=== PATIENT | female | born 1980 | race Caucasian/White ===

== ENCOUNTER 2024-07-10 17:18 | Inpatient (IN) | payer MEDICAID, SELFPAY ==
[2024-07-10] VITALS (13 sets, daily range): BP systolic 127–156; BP diastolic 61–84; PULSE 96–110; RESP 14–23; TEMP 36.6–37.1; O2SAT 96–100; BMI 41.8; BMI 40.6
--- NOTE | 2024-07-10 17:46 | PD.EDRME ---
Rapid Medical Screening Exam RME Arrival date/time: 07/10/24 17:18 43-year-old female with no known medical history presents to the emergency room with a chief complaint of a low hemoglobin level. Patient states she was called by her primary care provider to come to the emergency room for a hemoglobin level of 3. I have greeted and performed a focused initial assessment of this patient. A comprehensive ED assessment and evaluation of the patient, analysis of all test results, and completion of the medical decision making process will be conducted by additional ED providers. Chief Complaint: Shortness of Breath/Dyspnea Vital signs reviewed by provider: Yes
[2024-07-10 18:24] LABS: Basophils # (Auto) 0.1 Thou/mm3 (0.0-0.2); Basophils % (Auto) 0 % (0-2.5); Eosinophils # (Auto) 0.4 Thou/mm3 (0.0-0.5); Eosinophils % (Auto) 3 % (0-10); Immature Granulocytes % (Auto) 1 % (0-0); Immature Granulocytes Auto 0.12 Thou/mm3 (0.00-0.00); Lymphocytes # (Auto) 1.2 Thou/mm3 (1.0-4.8); Lymphocytes % (Auto) 9 % (10-50); Mean Corpuscular HGB Conc 24.1 g/dl (31.0-37.0); Mean Corpuscular Hemoglobin 14.9 pg (25.0-35.0); Mean Corpuscular Volume 62 fL (80-100); Monocytes # (Auto) 0.9 Thou/mm3 (0.0-0.8); Monocytes % (Auto) 7 % (0-12); Neutrophils # (Auto) 10.7 Thou/mm3 (1.8-7.7); Neutrophils % (Auto) 80 % (37-80); Nucleated Red Blood Cell # 0.08 Thou/mm3 (0.00-0.00); Nucleated Red Blood Cell % 1 /100 WBC (0); Platelet Count 409 Thou/mm3 (140-440); RDW Standard Deviation 48.3 fL (36.4-46.3); Red Blood Count 2.69 Miln/mm3 (4.00-5.20); White Blood Count 13.3 Thou/mm3 (3.6-11.0)
[2024-07-10 18:30] LABS: Partial Thromboplastin Time 25.7 Seconds (22.0-36.0); Prothrombin Time 11.3 Seconds (9.0-12.2)
[2024-07-10 18:46] LABS: Alanine Aminotransferase 8 U/L (10-49); Albumin/Globulin Ratio 1.3 (1.2-2.2); Alkaline Phosphatase 104 U/L (46-116); Anion Gap 8 (7-16); Aspartate Amino Transferase 12 U/L (0-34); BUN/Creatinine Ratio 10 Ratio (12-20); Bilirubin,Total 0.4 mg/dL (0.3-1.2); Blood Urea Nitrogen 7 mg/dL (9-23); Calcium 8.9 mg/dL (8.3-10.6); Calcium (Corrected) 8.9 mg/dL (8.5-10.1); Carbon Dioxide 23.7 mMol/L (20.0-31.0); Chloride 108 mMol/L (98-107); Creatinine (Component) 0.7 mg/dL (0.6-1.3); Estimated Creatinine Clearance 143.7 mL/min (>60); Globulin 3.2 gm/dL (2.3-3.5); Glucose 90 mg/dL (74-106); Osmolality,Calculated 277 (275-295); Potassium 3.6 mMol/L (3.4-5.1); Sodium 140 mMol/L (136-145); Total Protein 7.2 gm/dL (5.7-8.2); eGFR > 60 See Note
--- NOTE | 2024-07-10 18:48 | PC.NURSE ---
[facility] FROM LAB CALLED W/ CRITICAL LAB HGB 4.0, HCT 16.6. PUT IN COMMENTS FOR PROVIDER.
[2024-07-10 18:49] LABS: Hematocrit 16.6 % (36.0-46.0)
[2024-07-10 18:57] LABS: Path Review Blood Smear Sent to Pathologist
--- NOTE | 2024-07-10 19:28 | EDNOTE_ITS ---
ED SOB =RME/HPI General Chief Complaint: Shortness of Breath/Dyspnea Stated Complaint: SOB, COUGH, BACK PAIN X 3 DAYS, LOW HGB PER PCP Time Seen by Provider: 07/10/24 19:24 Arrival date/time: 07/10/24 17:18 RME / HPI RME / HPI Narrative: 07/10/24 17:18 43-year-old female with no known medical history presents to the emergency room with a chief complaint of a low hemoglobin level. Patient states she was called by her primary care provider to come to the emergency room for a hemoglobin level of 3. I have greeted and performed a focused initial assessment of this patient. A comprehensive ED assessment and evaluation of the patient, analysis of all test results, and completion of the medical decision making process will be conducted by additional ED providers. -------- Dr. Howe?s Main ED Evaluation: 43yo female presents to the ED for a chief complaint of low hemoglobin. Patient states she went to see her PCP earlier today due to being congested and having low back pain, reporting when they checked her hemoglobin, it was low at 3, so she was sent over here for evaluation. Patient states she gets nose bleeds often (almost daily) and has shortness of breath on exertion. Patient denies having any abnormal vaginal bleeding (no longer has periods), dark stools, weakness, dizziness, abnormal bruising or any other associated symptoms. No known allergies. Related Data Allergies Allergy/AdvReac Type Severity Reaction Status Date / Time No Known Allergies Allergy Verified 07/10/24 17:22 Review of Systems Review of Systems Systems Reviewed: All systems reviewed, normal except as documented Past Medical History Past Medical History CARDIAC: Negative Cardiac Disorders or Congestive Heart Failure RESPIRATORY: Negative Chronic Obstructive Pulmonary Disease (COPD) or Asthma GENITOURINARY: Negative Renal Disease ENDOCRINE: Negative Diabetes Mellitus Type 1 or Diabetes Mellitus Type 2 HEMATOLOGIC: Negative Sickle Cell Disease Social History SMOKING STATUS: Current every day smoker SUBSTANCE USE: marijuana ED Exam Narrative Physical exam: GENERAL APPEARANCE: alert and oriented x 4, well-developed, well-nourished, no acute distress VITALS: All vitals were reviewed and the pulse ox is 99% on room air, which is normal according to my interpretation. HEENT: Normocephalic, atraumatic; pupils equal, round, reactive to light; EOMI; mucous membranes pale, moist; oropharynx clear NECK: Supple LUNGS: CTABL; no wheezes, no rales, no rhonchi HEART: Regular rate, regular rhythm; normal S1, S2; no murmurs ABDOMEN: non distended; normal BS; soft, no tenderness, no guarding, no rebound; no masses, no organomegaly, no hernia; no alexia's sign BACK: no CVA tenderness; negative marx long's sign EXTREMITIES: atraumatic; no edema NEUROLOGIC: awake; alert and oriented x4; cranial nerves II-XII grossly intact; no focal sensory or motor deficits PSYCHIATRIC: appropriate mood and affect SKIN: warm, dry, pale; no rashes; pale nailbeds and conjunctiva Course Course Course Narrative: CXR is ordered for determining the etiology of shortness of breath. Quality Measures none Orders Category Date Time Status Bedside COVID-19 Antigen Test NOW Care 07/10/24 19:50 Active Bedside Influenza A&B Antigen Test NOW Care 07/10/24 19:[address] Screening NOW Care 07/10/24 19:48 Active Impact Retail Service Merchandiser STAT Care 07/10/24 19:44 Active Continuous Pulse Oximetry STAT Care 07/10/24 19:44 Completed EKG (ED ONLY) *Do not use* NOW Care 07/10/24 19:50 Completed Insert IV STAT Care 07/10/24 19:44 Active Occult Blood,Stool (Nursing) NOW Care 07/10/24 19:47 Active Transfuse,blood/blood products NOW Care 07/10/24 19:[address] abdomen pelvis w con Stat Exams 07/10/24 19:44 Completed EKG (ED Only) Stat Exams 07/10/24 19:50 Draft US gall bladder Stat Exams 07/11/24 00:37 Ordered XR chest 1V portable Stat Exams 07/10/24 19:50 Completed CBC Stat Lab 07/10/24 17:56 Completed CMP [Comprehensive Metabolic Panel] Stat Lab 07/10/24 17:56 Completed HCG Qualitative,Urine Stat Lab 07/11/24 03:10 Completed HCG,Qualitative Serum Stat Lab 07/10/24 17:56 Completed Magnesium Stat Lab 07/10/24 17:56 Completed PT [Prothrombin Time with INR] Stat Lab 07/10/24 17:56 Completed PTT [Partial Thromboplastin Time] Stat Lab 07/10/24 17:56 Completed Path Review Blood Smear Stat Lab 07/10/24 17:56 Completed Troponin I Stat Lab 07/10/24 17:56 Completed Type and Screen Stat Lab 07/10/24 17:56 Results Urinalysis Stat Lab 07/11/24 03:10 Completed prbc [Red Blood Cells] Stat Lab 07/10/24 17:56 Results Vital Signs Vital signs: Vital Signs Temperature 98.7 F 07/10/24 17:55 Pulse Rate 105 H 07/10/24 17:55 Respiratory Rate 18 07/10/24 17:55 Blood Pressure 132/73 H 07/10/24 17:55 Pulse Oximetry (%) 99 07/10/24 17:55 Oxygen Delivery Method Room Air 07/10/24 17:55 Shortness of Breath / Dyspnea MDM Narrative MDM Narrative:: Scribe Attestation: 07/10/24 - Sabine Zapien am scribing for and in the presence of Dr. Howe. Patient consented to receiving blood transfusion. Patient is guaiac positive. 2231: Attempted to call Dr. Gayle. Patient data External records reviewed:: [facility] previous records (Per chart review, patient was seen here on 10/10/19 for anemia requiring transfusions.) Clinical information provided by:: patient Social determinants that could affect healthcare access:: none Patient has the following chronic illnesses:: none How is presenting disease/condition affected by chronic disease/condition?: no chronic disease Evaluation data The following diagnostics were reviewed and interpreted by me:: lab results, radiology exam(s) and EKG tracing(s) Lab and/or radiology exams considered but not ordered:: none Interpretation Summary: WBC count is 13.3, HnH is low at 4.0/16.6, Platelets are normal, PT and INR are normal, PTT is normal, CMP is normal, Patient is O+, according to my interpretation. EKG done at 200, sinus tachycardia, rate of 104, normal axis, no ectopy, no acute ischemia, according to my interpretation. Examination: CT abdomen with intravenous contrast CT pelvis with intravenous contrast Date and time of exam:July 10, 2024 11:12 PM Comparison September 07, 2020 INDICATIONS: Lower back pain abdominal pain anemia beginning 3 days ago. iterative reconstruction technique. Findings: Mild pneumonia in the right middle lobe and right base Hepatomegaly 25 cm Splenomegaly 16.5 cm Contracted gallbladder with small calcification in the wall of the gallbladder and possible gallbladder wall thickening No pancreatic mass Upper abdominal wall hernia defect, axial image 79, 14 cm, containing a portion of the liver, stomach, colon and small bowel, no definite incarcerated bowel 11 mm lower pole right renal calculus, no hydronephrosis or ureteral calculi Normal appendix Thickening of the umbilical tract, no abscess Mild small bowel ileus No bowel obstruction No diverticulitis No pelvic mass Minimal free fluid in the pelvis Urinary bladder is intact Mild diffuse lumbar disc narrowing Ecpu-lh-[id number] narrowing hip joints IMPRESSION: Mild right middle lobe right base pneumonia Significant hepatosplenomegaly Recommend hepatobiliary sonography to exclude gallstones and thickening of the gallbladder wall Large upper abdominal wall hernia defect containing stomach and bowel, no incarcerated bowel or bowel obstruction Mild small bowel ileus 11 mm right renal calculus, no hydronephrosis or ureteral calculi Normal appendix Minimal free fluid in the pelvis, consider pelvic sonography follow-up Dictated By: Bandar Galloway MD Right upper quadrant ultrasound July 11, 2024 at 0149 hours Clinical history: Back pain. Cholecystitis on CT suspected. Technique: Grayscale and color flow images of the right upper quadrant are provided. Hepatic and portal veins were also imaged with color flow images. Comparison: No prior study is available for comparison. Findings: The visualized liver is enlarged in size measuring 22.2 cm demonstrates increased echogenicity with some areas of hypoechogenicity, likely fat sparring area without mass. Shadowing echogenic foci are seen in the gallbladder, without evidence of gallbladder wall thickening or pericholecystic fluid. The common duct is borderline dilated, measuring 7 mm at brenda hepatis. The distal common bile duct is obscured due to bowel gas artifact. No free fluid is demonstrated on the submitted images. The pancreas is unremarkable to the extent visualized. Impression: Cholelithiasis without acute cholecystitis. Borderline dilated common bile duct. Consider followup with MRCP. Hepatomegaly with fatty infiltration. Report Electronically Signed By: Kelli Hughes 07/11/2024 4:02:56 AM [EST] Medications / Prescriptions Medications or Prescriptions considered but not ordered:: none Medication administrations:: Medication Administration History Acetaminophen (Acetaminophen 325 Mg Tablet) 650 mg PO Q6H PRN PRN Reason: Fever >100.3 or pain 1-3 Stop: 08/10/24 04:53 Albuterol/Ipratropium (Albuterol/Ipratropium (Duoneb) Rt Zuleyka 3 Ml Nebu) 3 ml INH Q2HR PRN PRN Reason: SHORTNESS OF BREATH OR WHEEZE Stop: 08/10/24 04:53 Ondansetron HCl (Ondansetron Inj 2 Mg/Ml Inj 2 Ml) 4 mg IV Q6H PRN; Protocol PRN Reason: NAUSEA OR VOMITING Stop: 08/10/24 04:53 Oxycodone/Acetaminophen (Oxycodone/Apap 5/325 Tablet) 1 tab PO Q6H PRN PRN Reason: PAIN SCALE 4-6 (Moderate Stop: 07/16/24 04:53 Pantoprazole Sodium (Pantoprazole Inj 40 Mg Vial) 40 mg IVP BID STEVE Stop: 08/10/24 08:59 Sennosides (Senna Tablet) 1 tab PO QDAY PRN; Protocol PRN Reason: constipation Stop: 08/10/24 04:53 Discontinued Medications Nicotine (Nicotine Patch 21 Mg/24 Hr Patch.Td24) 21 mg TOP X1 ONE Stop: 07/11/24 05:03 see above, if any Consultations Consultation(s) initiated? (list below): Yes Consultation #1 (Physician, Specialty, Details): See MDM. Diagnosis Shortness of Breath Differential Diagnosis: other (anemia due to blood loss, hemolytic anemia, iron deficiency anemia, sideroblastic anemia, blood dyscrasia) Most likely diagnosis given after review of the tests above:: see clinical impression below Admission Indicated Admission indicated?: indicated Admission Request Was there a request for admission?: Yes Admission Attestation Admission request attestation: Discussed case with [] from Hospitalist service regarding admission. Discussed patients ED course, exam findings, labs, and radiology results. The Hospitalist [agrees,declines] to accept the patient for admission. Disposition Plan Disposition Plan: Admit Critical Care Time Critical Care Time Critical Care Time: Yes Total Critical Care Time (min.): 35 Attestation: The high probability of sudden, clinically significant deterioration in the patient?s condition required the highest level of my preparedness to intervene urgently. The services I provided to this patient were to treat and/or prevent clinically significant deterioration. Services included the following: chart data review, reviewing nursing notes and/or old charts, documentation time, technical sales consultant collaboration regarding findings and treatment options, medication orders and management, direct patient care, vital sign assessments and ordering, interpreting and reviewing diagnostic studies and lab tests. Aggregate critical care time includes only time during which I was engaged in wo rk directly related to the patient?s care, as described above, whether at bedside or elsewhere in the Emergency Department. It did not include time spent performing other reported procedures or the services of residents, students, nurses or physician assistants. Discharge Plan Plan Patient Disposition: Admit Acute Care w/in Hospital Problem List Clinical Impression: Anemia, GI bleed
--- NOTE | 2024-07-10 19:44 | XR_ITS ---
Examination: CT abdomen with intravenous contrast CT pelvis with intravenous contrast 2-D coronal reconstructions 2-D sagittal reconstructions Date and time of exam:July 10, 2024 11:12 PM Comparison September 07, 2020 INDICATIONS: Lower back pain abdominal pain anemia beginning 3 days ago. CTDI: vol (mGy) 20 DLP: (mGycm) 1157 Technique: Multiple axial sections of the abdomen and pelvis have been obtained. 64 slice high-resolution scanner used. 3 mm axial sections have been obtained, post intravenous injection of 60 cc [id number] 2-D sagittal, coronal reconstructions obtained. Low dose protocols were performed. One or more of the following dose reduction techniques were used; automated exposure control, adjustment of the mA and/or KV according to patient size, use of iterative reconstruction technique. Findings: Mild pneumonia in the right middle lobe and right base Hepatomegaly 25 cm Splenomegaly 16.5 cm Contracted gallbladder with small calcification in the wall of the gallbladder and possible gallbladder wall thickening No pancreatic mass Upper abdominal wall hernia defect, axial image 79, 14 cm, containing a portion of the liver, stomach, colon and small bowel, no definite incarcerated bowel 11 mm lower pole right renal calculus, no hydronephrosis or ureteral calculi Normal appendix Thickening of the umbilical tract, no abscess Mild small bowel ileus No bowel obstruction No diverticulitis No pelvic mass Minimal free fluid in the pelvis Urinary bladder is intact Mild diffuse lumbar disc narrowing Blev-nw-abcbvrhv narrowing hip joints IMPRESSION: Mild right middle lobe right base pneumonia Significant hepatosplenomegaly Recommend hepatobiliary sonography to exclude gallstones and thickening of the gallbladder wall Large upper abdominal wall hernia defect containing stomach and bowel, no incarcerated bowel or bowel obstruction Mild small bowel ileus 11 mm right renal calculus, no hydronephrosis or ureteral calculi Normal appendix Minimal free fluid in the pelvis, consider pelvic sonography follow-up
--- NOTE | 2024-07-10 19:50 | EKG_ITS ---
[facility] Test Date: 2024-07-10 Pat Name: MIAN THIBODEAUX Department: Room: - Gender: Female Build Manager: : 1980 Requested By: Sameer Sheridan Order Number: [id number] Reading MD: Sameer Sheridan Measurements Intervals [place] Rate: 104 P: 61 TX: 158 QRS: 9 QRSD: 90 T: 61 QT: 343 QTc: 451 Interpretive Statements SINUS TACHYCARDIA ABNORMAL RHYTHM ECG Compared to ECG 10/10/2019 12:59:01 No significant changes /store/S0/[id number]/[id number].pdf
--- NOTE | 2024-07-10 19:50 | XR_ITS ---
Examination: AP chest single view Technique one AP portable upright chest single view Standing time: July 10, 2024, 2005 hours Comparison October 10, 2019. INDICATIONS: Coughing today. FINDINGS: Mild enlargement cardiac contour Moderate vascular congestion Moderate osteopenia IMPRESSION: Suspicious for early heart failure
[2024-07-10 20:49] LABS: Magnesium 2.1 mg/dL (1.6-2.6); Troponin I < 0.020 ng/mL (0.0-0.045)
[2024-07-10 22:54] LABS: HCG,Qualitative Serum Negative
[2024-07-11] VITALS (30 sets, daily range): BP systolic 118–160; BP diastolic 57–92; PULSE 79–100; RESP 14–96; TEMP 35.9–36.9; O2SAT 92–100; BMI 41.3
--- NOTE | 2024-07-11 00:37 | XR_ITS ---
Examination: Abdomen sonogram, Limited Date and time of exam: July 11, 2024 0149 hours INDICATIONS: Back pain upper abdominal pain beginning 3 days ago Technique: Real-time hamilton scale transabdominal sonographic images of the upper abdomen obtained. Findings: Cholelithiasis Normal gallbladder wall Common bile duct 0.66 cm no definite stones Pancreatic head 3.4 cm Hepatomegaly 22.3 cm fatty liver Normal hepatopedal portal venous flow Patent IVC IMPRESSION: Cholelithiasis Enlarged common bile duct, if biliary colic is a clinical consideration, suggest MRCP follow-up Moderate hepatomegaly
[2024-07-11 03:53] LABS: Collection Type, Urine Clean Catch
[2024-07-11 03:55] LABS: Bacteria,Urine 1+; Bilirubin,Urine Negative (Negative); Blood,Urine Negative (Negative); Clarity,Urine Clear (Clear/Hazy); Color,Urine Lt-Yellow (Lt Yel-Yel); Glucose, Urine Negative (Negative); Ketones,Urine Negative (Negative); Leukocyte Esterase,Urine Negative (Negative); Nitrite,Urine Negative (Negative); PH,Urine 6.5 (5.0-7.0); Protein,Urine Trace (Neg - Trace); RBC,Urine 3 /hpf (0-3); Specific Gravity,Urine 1.041 (1.001-1.035); Squamous Epithelial Cell,Urine 2 /hpf (0-5); Urobilinogen,Urine Negative mg/dL (0.0-1.0); WBC,Urine 5 /hpf (0-5)
--- NOTE | 2024-07-11 04:03 | PRELIM_ITS ---
Right upper quadrant ultrasound July 11, 2024 at 0149 hours Clinical history: Back pain. Cholecystitis on CT suspected. Technique: Grayscale and color flow images of the right upper quadrant are provided. Hepatic and portal veins were also imaged with color flow images. Comparison: No prior study is available for comparison. Findings: The visualized liver is enlarged in size measuring 22.2 cm demonstrates increased echogenicity with some areas of hypoechogenicity, likely fat sparring area without mass. Shadowing echogenic foci are seen in the gallbladder, without evidence of gallbladder wall thickening or pericholecystic fluid. The common duct is borderline dilated, measuring 7 mm at brenda hepatis. The distal common bile duct is obscured due to bowel gas artifact. No free fluid is demonstrated on the submitted images. The pancreas is unremarkable to the extent visualized. Impression: Cholelithiasis without acute cholecystitis. Borderline dilated common bile duct. Consider followup with MRCP. Hepatomegaly with fatty infiltration. Report Electronically Signed By: Kelli Hughes 07/11/2024 4:02:56 AM [EST]
--- NOTE | 2024-07-11 04:05 | PC.NURSE ---
WE HAD DOWN TIME FROM [id number].
[2024-07-11 04:08] LABS: HCG Qualitative,Urine Negative
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
--- NOTE | 2024-07-11 07:40 | PC.CC ---
Patient is a 43 year-old female for GI Bleed Work Up. Marilee VANCE made [id number] contact with patient. ASW introduced self, role, and reason for visit. Patient appeared alert and oriented to self, location, and situation. Patient was pleasant and engaged in initial assessment. Patient confirmed information on demographics and reports to living alone. Patient reports that the medical decision maker if something should happen it would be her aunt, Emelyn Ortiz . At home patient ambulates independently and completes her own ADLs. Patient does not use any DME at home. Patient receives primary care at [facility] on the [address]. Upon discharge patient plans to return home. member services coordinator to follow up with any discharge plan.
[2024-07-11] MEDS: oxyCODONE/APAP 5/325 TABLET 1 TAB PO ×3 (07:46→21:25)
[2024-07-11 08:17] LABS: Alanine Aminotransferase 14 U/L (10-49); Albumin, Serum 3.7 gm/dL (3.5-5.0); Albumin/Globulin Ratio 1.5 (1.2-2.2); Alkaline Phosphatase 103 U/L (46-116); Anion Gap 7 (7-16); Aspartate Amino Transferase 26 U/L (0-34); BUN/Creatinine Ratio 10 Ratio (12-20); Bilirubin,Total 0.6 mg/dL (0.3-1.2); Blood Urea Nitrogen 6 mg/dL (9-23); Calcium 8.4 mg/dL (8.3-10.6); Calcium (Corrected) 8.6 mg/dL (8.5-10.1); Carbon Dioxide 25.2 mMol/L (20.0-31.0); Chloride 109 mMol/L (98-107); Creatinine (Component) 0.6 mg/dL (0.6-1.3); Estimated Creatinine Clearance 167.6 mL/min (>60); Globulin 2.5 gm/dL (2.3-3.5); Glucose 97 mg/dL (74-106); Magnesium 2.2 mg/dL (1.6-2.6); Osmolality,Calculated 278 (275-295); Phosphorous 4.2 mg/dL (2.4-5.1); Potassium 3.9 mMol/L (3.4-5.1); Sodium 141 mMol/L (136-145); Total Protein 6.2 gm/dL (5.7-8.2); eGFR > 60 See Note
[2024-07-11 08:27] LABS: Basophils # (Auto) 0.1 Thou/mm3 (0.0-0.2); Basophils % (Auto) 1 % (0-2.5); Eosinophils # (Auto) 0.3 Thou/mm3 (0.0-0.5); Eosinophils % (Auto) 3 % (0-10); Hematocrit 22.6 % (36.0-46.0); Immature Granulocytes % (Auto) 1 % (0-0); Lymphocytes # (Auto) 0.9 Thou/mm3 (1.0-4.8); Lymphocytes % (Auto) 9 % (10-50); Mean Corpuscular HGB Conc 28.8 g/dl (31.0-37.0); Mean Corpuscular Hemoglobin 19.7 pg (25.0-35.0); Mean Corpuscular Volume 69 fL (80-100); Monocytes # (Auto) 0.7 Thou/mm3 (0.0-0.8); Monocytes % (Auto) 7 % (0-12); Neutrophils # (Auto) 8.1 Thou/mm3 (1.8-7.7); Neutrophils % (Auto) 80 % (37-80); Nucleated Red Blood Cell # 0.06 Thou/mm3 (0.00-0.00); Nucleated Red Blood Cell % 1 /100 WBC (0); Platelet Count 331 Thou/mm3 (140-440); RDW Standard Deviation 61.1 fL (36.4-46.3); White Blood Count 10.2 Thou/mm3 (3.6-11.0)
[2024-07-11 08:34] LABS: Hemoglobin 6.5 g/dL (12.0-16.0)
[2024-07-11] MEDS: NICOTINE PATCH 21 MG/24 HR PATCH.TD24 TOP (08:50)
[2024-07-11] MEDS: PANTOPRAZOLE INJ 40 MG VIAL IVP ×2 (09:20→20:30)
--- NOTE | 2024-07-11 15:52 | ESPR_ITS ---
<Statement entered by Buck Sepulveda MD - 07/18/24 09:24> I reviewed above note and agree with findings and plans. I have also personally examined the patient with medicine team and went over assessment and plan with medical team including athletic training internship and resident physician. <Statement entered by Frank Fitzpatrick MD - 07/12/24 15:24> I discussed with and supervised the athletic training internship physician involved in the care of this patient. Patient assessment and plan was discussed with entire medicine team, including my attending. I agree with the assessment and plan as documented by athletic training internship doctor. Patient care was discussed with my attending physician Dr. Derick Fitzpatrick, PGY-2 Documentation for date of: 07/11/24 Subjective Subjective Interval history: Patient examined at bedside. States that her back pain has improved with pain medication, 09/18. Denies any LE numbness or tingling, no headache, no dizziness. Has not had any nosebleeds since admission. Patient is status post 4 unit PRBC, 1 unit FFP-- posttransfusion H&H shows improvement of hemoglobin to 6.5 and hematocrit to 22. Dr. Gayle is consulted, planning for EGD. Gallbladder ultrasound positive for cholelithiasis, enlarged CBD. LFTs are WNL, Br 0.6. Vitals are stable. Follow up with MRCP. Exam Vital Signs Temp Pulse Resp BP Pulse Ox O2 Del Method 98.0 F 95 18 118/89 H 97 Room Air 07/11/24 14:07/11/24 14:07/11/24 14:07/11/24 14:07/11/24 14:07/11/24 14:00 Narrative Exam General: Awake and in no acute distress, pale, obese female. HEENT: Normocephalic, atraumatic, mucous membranes moist and pale. Heart: Regular rate and rhythm, no murmurs. Lungs: Clear to auscultation with no wheezing or crackles. Abdomen: Soft, mildly distended, midline laparotomy scar, in the umbilical region a hernia is palpated, nontender, positive bowel sounds. ?No guarding or rebound tenderness. Neurologic: Alert and oriented x3, no gross neurological deficit, and patient able to move all 4 extremities. Extremities: No edema, no malfomations, tattoos Skin: No rash or ecchymoses. Objective Labs 07/11/24 08:15 07/11/24 07:15 Labs: Laboratory Results - last 24 hr 07/10/24 07/11/24 07/11/24 17:56 03:10 07:15 WBC 13.3 H RBC 2.69 L Hgb 4.0 L* Hct 16.6 L* MCV 62 L MCH 14.9 L MCHC 24.1 L RDW Std Deviation 48.3 H Plt Count 409 Neut % (Auto) 80 Lymph % (Auto) 9 L [place] % (Auto) 7 Eos % (Auto) 3 Baso % (Auto) 0 Neut # (Auto) 10.7 H Lymph # (Auto) 1.2 [place] # (Auto) 0.9 H Eos # (Auto) 0.4 Baso # (Auto) 0.1 Immature Gran # (Auto) 0.12 H Absolute Nucleated RBC 0.08 H Immature Gran % 1 H Nucleated RBC % 1 H Smear Path Review Sent to Pathologist PT 11.3 INR 1.0 APTT 25.7 Sodium 140 141 Potassium 3.6 3.9 Chloride 108 H 109 H Carbon Dioxide 23.7 25.2 Anion Gap 8 7 BUN 7 L 6 L Creatinine 0.7 0.6 Estim Creat Clear Calc 143.7 167.6 eGFR > 60 > 60 BUN/Creatinine Ratio 10 L 10 L Glucose 90 97 Calculated Osmolality 277 278 Calcium 8.9 8.4 Corrected Calcium 8.9 8.6 Phosphorus 4.2 Magnesium 2.1 2.2 Total Bilirubin 0.4 0.6 AST 12 26 ALT 8 L 14 Alkaline Phosphatase 104 103 Troponin I < 0.020 Total Protein 7.2 6.2 Albumin 4.0 3.7 Globulin 3.2 2.5 Albumin/Globulin Ratio 1.3 1.5 HCG, Qual Negative Ur Collection Type Clean Catch Urine Color Lt-Yellow Urine Clarity Clear Urine pH 6.5 Ur Specific [place] 1.041 H Urine Protein Trace Urine Glucose (UA) Negative Urine Ketones Negative Urine Blood Negative Urine Nitrite Negative Urine Bilirubin Negative Urine Urobilinogen (Auto) Negative Ur Leukocyte Esterase Negative Urine RBC 3 Urine WBC 5 Ur Squamous Epith Cells 2 Urine Bacteria 1+ A Urine HCG, Qual Negative Blood Type O Positive Antibody Screen NEGATIVE Crossmatch See Detail Blood Bank Wristband ID Yes Blood Bank Comment FFP Ready 07/11/24 08:15 WBC 10.2 RBC 3.30 L Hgb 6.5 L* D Hct 22.6 L MCV 69 L MCH 19.7 L MCHC 28.8 L RDW Std Deviation 61.1 H Plt Count 331 D Neut % (Auto) 80 Lymph % (Auto) 9 L [place] % (Auto) 7 Eos % (Auto) 3 Baso % (Auto) 1 Neut # (Auto) 8.1 H Lymph # (Auto) 0.9 L [place] # (Auto) 0.7 Eos # (Auto) 0.3 Baso # (Auto) 0.1 Immature Gran # (Auto) 0.10 H Absolute Nucleated RBC 0.06 H Immature Gran % 1 H Nucleated RBC % 1 H Smear Path Review PT INR APTT Sodium Potassium Chloride Carbon Dioxide Anion Gap BUN Creatinine Estim Creat Clear Calc eGFR BUN/Creatinine Ratio Glucose Calculated Osmolality Calcium Corrected Calcium Phosphorus Magnesium Total Bilirubin AST ALT Alkaline Phosphatase Troponin I Total Protein Albumin Globulin Albumin/Globulin Ratio HCG, Qual Ur Collection Type Urine Color Urine Clarity Urine pH Ur Specific [place] Urine Protein Urine Glucose (UA) Urine Ketones Urine Blood Urine Nitrite Urine Bilirubin Urine Urobilinogen (Auto) Ur Leukocyte Esterase Urine RBC Urine WBC Ur Squamous Epith Cells Urine Bacteria Urine HCG, Qual Blood Type Antibody Screen Crossmatch Blood Bank Wristband ID Blood Bank Comment Quality Measures Quality Measures VTE prophylaxis Assessment & Plan Assessment Current Active Medications: Generic Name Dose Route Start Last Admin Trade Name Freq PRN Reason Stop Dose Admin Acetaminophen 650 mg 07/11/24 04:54 Acetaminophen 325 Mg Tablet PO 08/10/24 04:53 Q6H PRN Fever >100.3 or pain 1-3 Albuterol/Ipratropium 3 ml 07/11/24 04:54 Albuterol/Ipratropium (Duoneb) Rt Zuleyka 3 Ml Nebu INH 08/10/24 04:53 Q2HR PRN SHORTNESS OF BREATH OR WHEEZE Ondansetron HCl 4 mg 07/11/24 04:54 Ondansetron Inj 2 Mg/Ml Inj 2 Ml IV 08/10/24 04:53 Q6H PRN NAUSEA OR VOMITING Protocol Oxycodone/Acetaminophen 1 tab 07/11/24 04:54 07/11/24 15:25 Oxycodone/Apap 5/325 Tablet PO 07/16/24 04:53 1 tab Q6H PRN Administration PAIN SCALE 4-6 (Moderate Pantoprazole Sodium 40 mg 07/11/24 09:00 07/11/24 09:20 Pantoprazole Inj 40 Mg Vial IVP 08/10/24 08:59 40 mg BID STEVE Administration Sennosides 1 tab 07/11/24 04:54 Senna Tablet PO 08/10/24 04:53 QDAY PRN constipation Protocol Plan Yadi Ortiz is a 43-year-old female with a previous medical history of recurrent epistaxis, abdominal hernia s/p laparotomy in 2020, chronic active smoker, chronic back pain who came to the ED due to back pain and low hemoglobin. Patient was admitted for severe chronic hemorrhagic anemia requiring blood transfusions secondary to possible GI bleed, recurrent epistaxis for workup and management. #Severe blood loss anemia #rule out GI bleeding #Recurrent epistaxis Patient reports general weakness, appears pale. Initial CBC showed hemoglobin of 4.0, microcytosis which could be an indication of the chronic blood loss. Guaiac stool test was positive. Patient had received 4 units PRBC and 1 unit FFP. Coagulation panel normal. Plan: ? Posttransfusion H&H shows improvement from 4.0-6.5. ? Monitor daily CBC, transfuse if hemoglobin less than 7 ? Pantoprazole 40 mg twice daily ? GI recommendations pending ? N.p.o. for now ? Blood smear pending ? Consider workup for hematological disorders if other workup is negative #Asymptomatic Cholelithiasis Gallbladder ultrasound positive for cholelithiasis, enlarged CBD. No definite stones seen, LFTs and Br normal. -continue to monitor #Right nephrolithiasis -11mm stone in right kidney -patient is asymptomatic. Follow up outpatient #Chronic back pain Plan: ? Pain control as needed #Active smoker Plan: ? Nicotine patch 21 mg once ? Consider conversation regarding smoke cessation #History of meth use Patient reports her last meth use was yesterday Plan: ? U-Tox ordered Health maintenance: FEN: NPO for now DVT prophylaxis: SCDs GI prophylaxis: pantoprazole 40 mg BID Dispo: tele bed CODE STATUS: Full code (patient is okay with resuscitation, but does not want to be on life support long-term) The patient's management plan was discussed with my attending physician Dr. Sepulveda. Adamaris Bonds, PGY-1
--- NOTE | 2024-07-11 17:10 | PC.NURSE ---
Patient arrived in Tele unit from ED via gurney around 15:39. Assisted patient to bed. Provided safety and comfort.
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
[2024-07-11 23:09] LABS: Hematocrit 23.2 % (36.0-46.0)
[2024-07-11 23:25] LABS: Hemoglobin 6.5 g/dL (12.0-16.0)
--- NOTE | 2024-07-11 23:26 | XR_ITS ---
Examination: AP chest single view TECHNIQUE: AP portable upright chest single view. Examination time: July 11, 2024 11:46 PM Comparison July 10, 2024 INDICATIONS: Hypoxemia today FINDINGS: [id number] CHF Mild enlargement cardiac contour. Prominent vascular congestion including central vascular engorgement. Perihilar edema. Mild osteopenia. IMPRESSION: [id number] CHF
[2024-07-12] VITALS (27 sets, daily range): BP systolic 123–155; BP diastolic 62–91; PULSE 91–106; RESP 12–98; TEMP 36.1–36.6; O2SAT 94–99; BMI 41.2
[2024-07-12 00:15] LABS: Amphetamine/Methamp Scrn,U Positive (Negative); Barbiturate Screen,Urine Negative (Negative); Benzodiazepines Screen,Urine Negative (Negative); Benzoylecgonine Screen, Ur Negative (Negative); Fentanyl Screen,Urine Negative (Negative); Opiate Screen,Urine Negative (Negative); THC Screen,Urine Positive (Negative)
[2024-07-12] MEDS: FUROSEMIDE INJ 10 MG/ML 4ML VIAL 40 MG IVP (00:51)
[2024-07-12 05:53] LABS: Basophils # (Auto) 0.1 Thou/mm3 (0.0-0.2); Basophils % (Auto) 1 % (0-2.5); Eosinophils # (Auto) 0.2 Thou/mm3 (0.0-0.5); Eosinophils % (Auto) 2 % (0-10); Hematocrit 26.4 % (36.0-46.0); Immature Granulocytes % (Auto) 1 % (0-0); Immature Granulocytes Auto 0.12 Thou/mm3 (0.00-0.00); Lymphocytes % (Auto) 10 % (10-50); Mean Corpuscular HGB Conc 28.8 g/dl (31.0-37.0); Mean Corpuscular Hemoglobin 20.2 pg (25.0-35.0); Mean Corpuscular Volume 70 fL (80-100); Monocytes # (Auto) 0.7 Thou/mm3 (0.0-0.8); Monocytes % (Auto) 7 % (0-12); Neutrophils # (Auto) 7.6 Thou/mm3 (1.8-7.7); Neutrophils % (Auto) 79 % (37-80); Nucleated Red Blood Cell # 0.03 Thou/mm3 (0.00-0.00); Nucleated Red Blood Cell % 0 /100 WBC (0); Platelet Count 373 Thou/mm3 (140-440); RDW Standard Deviation 65.9 fL (36.4-46.3); Red Blood Count 3.76 Miln/mm3 (4.00-5.20); White Blood Count 9.7 Thou/mm3 (3.6-11.0)
[2024-07-12 05:57] LABS: Hemoglobin 7.6 g/dL (12.0-16.0)
[2024-07-12 06:38] LABS: Alanine Aminotransferase 10 U/L (10-49); Albumin, Serum 4.1 gm/dL (3.5-5.0); Albumin/Globulin Ratio 1.4 (1.2-2.2); Alkaline Phosphatase 110 U/L (46-116); Anion Gap 8 (7-16); Aspartate Amino Transferase 14 U/L (0-34); BUN/Creatinine Ratio 12 Ratio (12-20); Bilirubin,Total 0.6 mg/dL (0.3-1.2); Blood Urea Nitrogen 7 mg/dL (9-23); Calcium 8.7 mg/dL (8.3-10.6); Calcium (Corrected) 8.7 mg/dL (8.5-10.1); Carbon Dioxide 26.6 mMol/L (20.0-31.0); Chloride 106 mMol/L (98-107); Creatinine (Component) 0.6 mg/dL (0.6-1.3); Estimated Creatinine Clearance 163.9 mL/min (>60); Glucose 94 mg/dL (74-106); Osmolality,Calculated 279 (275-295); Potassium 3.3 mMol/L (3.4-5.1); Sodium 141 mMol/L (136-145); Total Protein 7.1 gm/dL (5.7-8.2); eGFR > 60 See Note
[2024-07-12] MEDS: oxyCODONE/APAP 5/325 TABLET 1 TAB PO ×2 (07:35→22:03)
[2024-07-12] MEDS: PANTOPRAZOLE INJ 40 MG VIAL IVP ×2 (08:06→21:56)
[2024-07-12] MEDS: POTASSIUM CHLORIDE 20 mEq TABCR 40 MEQ PO ×2 (08:06→12:40)
[2024-07-12] MEDS: POTASSIUM CHLORIDE 20 mEq TABCR PO (09:51)
--- NOTE | 2024-07-12 12:29 | PC.SS ---
SS met with patient regarding her d/c plan.? Pt is alert/oriented.? Pt was admitted for GI Bleed Work Up.? Pt confirmed demographic and contact information is correct on facesheet.? Pt resides with Alone.? Pt ambulates independently without assistance or DME.? Pt is ok with all ADLs.? Patient?s pharmacy of choice is [facility] [address] Pt named her dtr, Marcellafelicity Mars medical decision maker if she is unable.? Patient?s choice is to return home upon d/c.? Pt states she has an advance directive at home.? Pt states not diabetic and is not on dialysis.? Pt states she followed up with PCP on 07-10-24. D/C plan:? Return home Next of Kin:? Victor Hugo Mars, daughter, phone# [phone] PCP:? [facility] Address:? Correct on facesheet
--- NOTE | 2024-07-12 13:17 | ESPR_ITS ---
<Statement entered by Buck Sepulveda MD - 07/20/24 13:33> I reviewed above note and agree with findings and plans. I have also personally examined the patient with medicine team and went over assessment and plan with medical team including [employer] certified internetwork expert and resident physician. Documentation for date of: 07/12/24 Subjective Subjective Interval history: Patient examined at bedside. Overnight, patient was desaturating to 80s. Chest xray at the time showed some congestion. She was given another unit of pRBC followed by IV Lasix 40mg x1. Vitals this morning are stable. Denies SOB or chest pain. Hb 7.6, Hct 26, hypokalemic 3.3. Repleted 40+20mEq. Patient's EGD is pending for upper GI bleed. Exam Vital Signs Temp Pulse Resp BP Pulse Ox O2 Del Method O2 Flow Rate 97.0 F 96 18 138/82 H 96 Room Air 2 07/12/24 12:00 07/12/24 12:00 07/12/24 12:00 07/12/24 12:00 07/12/24 12:00 07/12/24 12:00 07/12/24 03:34 Narrative Exam General:sleeping, no acute distress, pale, obese female. HEENT: Normocephalic, atraumatic, mucous membranes moist, nares with dried blood. Heart: Regular rate and rhythm, no murmurs. Lungs: Clear to auscultation with no wheezing or crackles. Abdomen: Soft, mildly distended, midline laparotomy scar, in the umbilical region a hernia is palpated, nontender, positive bowel sounds. ?No guarding or rebound tenderness. Neurologic: Alert and oriented x3, no gross neurological deficit, and patient able to move all 4 extremities. Extremities: No edema, no malfomations, tattoos Skin: No rash or ecchymoses. Objective Labs 07/12/24 05:11 07/12/24 05:11 Labs: Laboratory Results - last 24 hr 07/10/24 07/11/24 07/11/24 17:56 20:49 22:44 WBC RBC Hgb 6.5 L* Hct 23.2 L MCV MCH MCHC RDW Std Deviation Plt Count Neut % (Auto) Lymph % (Auto) [place] % (Auto) Eos % (Auto) Baso % (Auto) Neut # (Auto) Lymph # (Auto) [place] # (Auto) Eos # (Auto) Baso # (Auto) Immature Gran # (Auto) Absolute Nucleated RBC Immature Gran % Nucleated RBC % Sodium Potassium Chloride Carbon Dioxide Anion Gap BUN Creatinine Estim Creat Clear Calc eGFR BUN/Creatinine Ratio Glucose Calculated Osmolality Calcium Corrected Calcium Total Bilirubin AST ALT Alkaline Phosphatase Total Protein Albumin Globulin Albumin/Globulin Ratio Urine Opiates Screen Negative Urine Fentanyl Screen Negative Ur Barbiturates Screen Negative U Amphetamin/Meth Scrn Positive A U Benzodiazepines Scrn Negative U Cocaine Metab Screen Negative U Marijuana (THC) Screen Positive A Blood Type O Positive Antibody Screen NEGATIVE Crossmatch See Detail Blood Bank Wristband ID Yes Blood Bank Comment PLATP Ready 07/12/24 05:11 WBC 9.7 RBC 3.76 L Hgb 7.6 L Hct 26.4 L MCV 70 L MCH 20.2 L MCHC 28.8 L RDW Std Deviation 65.9 H Plt Count 373 D Neut % (Auto) 79 Lymph % (Auto) 10 [place] % (Auto) 7 Eos % (Auto) 2 Baso % (Auto) 1 Neut # (Auto) 7.6 Lymph # (Auto) 1.0 [place] # (Auto) 0.7 Eos # (Auto) 0.2 Baso # (Auto) 0.1 Immature Gran # (Auto) 0.12 H Absolute Nucleated RBC 0.03 H Immature Gran % 1 H Nucleated RBC % 0 Sodium 141 Potassium 3.3 L D Chloride 106 Carbon Dioxide 26.6 Anion Gap 8 BUN 7 L Creatinine 0.6 Estim Creat Clear Calc 163.9 eGFR > 60 BUN/Creatinine Ratio 12 Glucose 94 Calculated Osmolality 279 Calcium 8.7 Corrected Calcium 8.7 Total Bilirubin 0.6 AST 14 ALT 10 Alkaline Phosphatase 110 Total Protein 7.1 Albumin 4.1 Globulin 3.0 Albumin/Globulin Ratio 1.4 Urine Opiates Screen Urine Fentanyl Screen Ur Barbiturates Screen U Amphetamin/Meth Scrn U Benzodiazepines Scrn U Cocaine Metab Screen U Marijuana (THC) Screen Blood Type Antibody Screen Crossmatch Blood Bank Wristband ID Blood Bank Comment Quality Measures Quality Measures VTE prophylaxis Assessment & Plan Assessment Current Active Medications: Generic Name Dose Route Start Last Admin Trade Name Freq PRN Reason Stop Dose Admin Acetaminophen 650 mg 07/11/24 04:54 Acetaminophen 325 Mg Tablet PO 08/10/24 04:53 Q6H PRN Fever >100.3 or pain 1-3 Albuterol/Ipratropium 3 ml 07/11/24 04:54 Albuterol/Ipratropium (Duoneb) Rt Zuleyka 3 Ml Nebu INH 08/10/24 04:53 Q2HR PRN SHORTNESS OF BREATH OR WHEEZE Ondansetron HCl 4 mg 07/11/24 04:54 Ondansetron Inj 2 Mg/Ml Inj 2 Ml IV 08/10/24 04:53 Q6H PRN NAUSEA OR VOMITING Protocol Oxycodone/Acetaminophen 1 tab 07/11/24 04:54 07/12/24 07:35 Oxycodone/Apap 5/325 Tablet PO 07/16/24 04:53 1 tab Q6H PRN Administration PAIN SCALE 4-6 (Moderate Pantoprazole Sodium 40 mg 07/11/24 09:00 07/12/24 08:06 Pantoprazole Inj 40 Mg Vial IVP 08/10/24 08:59 40 mg BID STEVE Administration Sennosides 1 tab 07/11/24 04:54 Senna Tablet PO 08/10/24 04:53 QDAY PRN constipation Protocol Plan Yadi Ortiz is a 43-year-old female with a previous medical history of recurrent epistaxis, abdominal hernia s/p laparotomy in 2020, chronic active smoker, chronic back pain who came to the ED due to back pain and low hemoglobin. Patient was admitted for severe chronic hemorrhagic anemia requiring blood transfusions secondary to possible GI bleed, recurrent epistaxis for workup and management. #Severe blood loss anemia #rule out GI bleeding #Recurrent epistaxis Patient reports general weakness, appears pale. Initial CBC showed hemoglobin of 4.0, microcytosis which could be an indication of the chronic blood loss. Guaiac stool test was positive. Patient had received 4 units PRBC and 1 unit FFP. Coagulation panel normal. Received one more unit rbc last night. (total of 5) + [address] Gayle is consulted. Plan: ? Posttransfusion H&H shows improvement from 6.5-- 7.6. ? Monitor daily CBC ? Pantoprazole 40 mg twice daily ? EGD pending ? N.p.o. for now ? Blood smear pending ? Consider workup for hematological disorders if other workup is negative #Asymptomatic Cholelithiasis Gallbladder ultrasound positive for cholelithiasis, enlarged CBD. No definite stones seen, LFTs and Br normal. -continue to monitor #Right nephrolithiasis -11mm stone in right kidney -patient is asymptomatic. Follow up outpatient #Chronic back pain Plan: ? Pain control as needed #Active smoker Plan: ? Nicotine patch 21 mg once ? Consider conversation regarding smoke cessation #History of meth use Patient reports her last meth use was yesterday Plan: ? U-Tox ordered Health maintenance: FEN: NPO for now DVT prophylaxis: SCDs GI prophylaxis: pantoprazole 40 mg BID Dispo: tele bed, EGD pending CODE STATUS: Full code (patient is okay with resuscitation, but does not want to be on life support long-term) The patient's management plan was discussed with my attending physician Dr. Sepulveda. Adamaris Bonds, PGY-1 HUMAIRA discussed with and supervised the [employer] certified internetwork expert physician who took care of this patient. I personally saw and examined the patient and discussed the assessment and plan with the entire medicine team, including my attending Dr. Derick MARSH. I agree with the assessment and plan as documented above. Patient interviewed and examined at bedside this a.m. Overnight events, the patient had a episode of desaturating into the 80s. A stat chest x-ray was ordered which showed some vascular congestion. Patient was given 1 unit of PRBCs which was followed by Lasix 40 mg x 1. Upon my evaluation the patient is not short of breath and is currently saturating appropriately and ambient air. Pending endoscopic evaluation for workup of GI bleed and acute blood loss anemia will continue to trend daily H&H. Hank Eric M.D. Internal Medicine PGY-3
--- NOTE | 2024-07-12 19:29 | SUR.PHASEI ---
1919 To PACU able to lift head off of pillow, continue to monitor pt vital signs and status.
--- NOTE | 2024-07-12 20:01 | SUR.PHASEI ---
1956 Transfer to room 275 in stable condition no complaints, no s/s of distress noted.
[2024-07-12] MEDS: SUCRALFATE SUSP 1 GM/10 ML UDC PO (21:56)
[2024-07-13] VITALS (8 sets, daily range): BP systolic 116–157; BP diastolic 65–83; PULSE 90–98; RESP 14–26; TEMP 35.9–36.1; O2SAT 93–98
[2024-07-13 05:39] LABS: Basophils # (Auto) 0.1 Thou/mm3 (0.0-0.2); Basophils % (Auto) 1 % (0-2.5); Eosinophils # (Auto) 0.3 Thou/mm3 (0.0-0.5); Eosinophils % (Auto) 3 % (0-10); Hematocrit 28.5 % (36.0-46.0); Immature Granulocytes % (Auto) 2 % (0-0); Immature Granulocytes Auto 0.15 Thou/mm3 (0.00-0.00); Lymphocytes % (Auto) 11 % (10-50); Mean Corpuscular HGB Conc 27.4 g/dl (31.0-37.0); Mean Corpuscular Hemoglobin 20.1 pg (25.0-35.0); Mean Corpuscular Volume 74 fL (80-100); Monocytes # (Auto) 0.6 Thou/mm3 (0.0-0.8); Monocytes % (Auto) 7 % (0-12); Neutrophils # (Auto) 6.6 Thou/mm3 (1.8-7.7); Neutrophils % (Auto) 75 % (37-80); Nucleated Red Blood Cell # 0.03 Thou/mm3 (0.00-0.00); Nucleated Red Blood Cell % 0 /100 WBC (0); Platelet Count 407 Thou/mm3 (140-440); RDW Standard Deviation 71.1 fL (36.4-46.3); Red Blood Count 3.88 Miln/mm3 (4.00-5.20); White Blood Count 8.8 Thou/mm3 (3.6-11.0)
[2024-07-13 05:40] LABS: Hemoglobin 7.8 g/dL (12.0-16.0)
[2024-07-13 06:36] LABS: Alanine Aminotransferase 7 U/L (10-49); Albumin, Serum 3.8 gm/dL (3.5-5.0); Albumin/Globulin Ratio 1.3 (1.2-2.2); Alkaline Phosphatase 100 U/L (46-116); Anion Gap 9 (7-16); Aspartate Amino Transferase 12 U/L (0-34); BUN/Creatinine Ratio 15 Ratio (12-20); Bilirubin,Total 0.6 mg/dL (0.3-1.2); Blood Urea Nitrogen 9 mg/dL (9-23); Calcium 8.8 mg/dL (8.3-10.6); Carbon Dioxide 24.4 mMol/L (20.0-31.0); Chloride 106 mMol/L (98-107); Creatinine (Component) 0.6 mg/dL (0.6-1.3); Estimated Creatinine Clearance 163.9 mL/min (>60); Glucose 91 mg/dL (74-106); Osmolality,Calculated 276 (275-295); Potassium 3.8 mMol/L (3.4-5.1); Sodium 139 mMol/L (136-145); Total Protein 6.8 gm/dL (5.7-8.2); eGFR > 60 See Note
[2024-07-13] MEDS: SUCRALFATE SUSP 1 GM/10 ML UDC PO ×2 (06:37→12:31)
[2024-07-13] MEDS: PANTOPRAZOLE INJ 40 MG VIAL IVP (08:42)
--- NOTE | 2024-07-13 09:08 | PC.SS ---
Follow up note: Possible d/c home. Pending EGD.
--- NOTE | 2024-07-13 11:21 | ESDS_ITS ---
Planned Discharge Date 07/13/24 DS: Providers Provider Date of admission: 07/11/24 04:54 Primary care physician: Physician No Primary/Family Admitting Provider: Franklyn Wang MD Attending Provider on Admission: Buck Sepulveda MD Consults: 07/11/24 04:59 Consult to Gastroenterology Stat Comment: GI bleed Consulting Provider: Irma Gayle Attending Provider on DC: Buck Sepulveda MD Discharging Provider: Buck Sepulveda MD DS: Diagnosis Problem List Completed Was Problem List Reviewed/Reconciled?: Yes Hospital Course Hospital Course Hospital course: Reason for hospitalization: upper GI bleed Yadi Ortiz is 43 yr female with PMH of recurrent epistaxis, hemorrhoids, abdominal hernia s/p laparotomy in 2020, methamphetamine use, chronic active smoker who presented to [facility] ED on 07/11/24 due to back pain. Patient was admitted for workup of upper GI bleeding. While attempting to get out of her truck, she slipped and fell landing on her back. Event took place at home and she was able to receive assistance from family to get up. Also reported daily nosebleeds losing approximately 4 teaspoons of blood. She denies getting any further workup done outpatient. In the ED, patient's hemoglobin was 4.0, hematocrit 16, MCV 62. UA negative for UTI. Chest CT showed mild right middle lobe right base pneumonia, significant hepatosplenomegaly, large upper abdominal wall hernia containing stomach, bowel. GI specialist Dr. Gayle was consulted. Patient received total of 5 units PRBC, 1 unit FFP, 1 unit platelets. Ultimately her hemoglobin improved to 7.8, hematocrit 28. EGD was completed on 07/12. Findings included hemorrhagic gastritis with oozing of blood from gastric mucosa and duodenum. No clear ulceration noted. No esophageal or gastric varices. Per GI recommendations, patient should continue Carafate suspension 1 g 4 times a day. Patient should follow-up with GI and ENT. Patient is now in stable condition and ready for discharge. Recommendations were given as below. Discharge Recommendations: Continue Protonix and Sucralfate as prescribed. Obtain referral for ENT for workup of recurrent nosebleeds. Follow outpatient with PCP in 1 week. Returm to Emergency Department if symptoms worsen. Hospital Diagnoses: #Severe blood loss anemia #rule out GI bleeding #Recurrent epistaxis #Asymptomatic Cholelithiasis #Right nephrolithiasis #Chronic back pain #Active smoker #History of meth use The patient's management plan was discussed with my attending physician Dr. Sepulveda. Adamaris Bonds MD, PGY-1 Time spent discussing smoking cessation with patient: more than 10 minutes Time Spent with Patient Time attestation: Total time spent providing and/or coordinating discharge services: Time spent: Greater than 30 minutes Exam Vital Signs Temp Pulse Resp BP Pulse Ox O2 Del Method O2 Flow Rate 96.7 F L 97 23 H 116/76 93 L Nasal Cannula 0.5 07/13/24 08:00 07/13/24 08:00 07/13/24 08:00 07/13/24 08:00 07/13/24 08:00 07/13/24 08:00 07/13/24 08:00 Narrative Exam General: sleeping, no acute distress, pale, obese female. HEENT: Normocephalic, atraumatic, mucous membranes moist, nares with dried blood. Heart: Regular rate and rhythm, no murmurs. Lungs: Clear to auscultation with no wheezing or crackles. Abdomen: Soft, mildly distended, midline laparotomy scar, in the umbilical region a hernia is palpated, nontender, positive bowel sounds. ?No guarding or rebound tenderness. Neurologic: Alert and oriented x3, no gross neurological deficit, and patient able to move all 4 extremities. Extremities: No edema, no malfomations, tattoos Skin: No rash or ecchymoses. Discharge Plan Plan Patient Disposition: HOME (Self Care) Patient condition on transfer: Stable Care Plan Goals: Continue Protonix and Sucralfate as prescribed. Obtain referral for ENT for workup of recurrent nosebleeds. Follow outpatient with PCP in 1 week. Returm to Emergency Department if symptoms worsen. Prescriptions/Referrals Prescriptions/Med Rec: New sucralfate [Carafate] 100 mg/mL suspension 5 ml PO QID 14 Days Qty: 280 0RF Rx Instructions: swish in mouth and swallow; use after food/drink pantoprazole [Protonix] 40 mg tablet,delayed release (DR/EC) 40 mg PO QDAY Qty: 30 0RF Referrals: No Primary/Family,Physician [Primary Care Provider] - Patient/Caregiver Discharge Instructions Other Discharge Activity Instructions:: Continue Protonix and Sucralfate as prescribed. Obtain referral for ENT for workup of recurrent nosebleeds. Follow outpatient with PCP in 1 week. Returm to Emergency Department if symptoms worsen. Education Materials: Bleeding Gastrointestinal, Anemia Print Language: Swedish Stand Alone Forms: [employer] Award Info., Patient Portal Info Letter Discharge Order Discharge Orders: Discharge (Routine); Ordered 07/13/24 Ordered By: Adamaris Bonds Quality Discharge Quality Measures VTE prophylaxis
== END 2024-07-13 16:35 | disposition home or self-care (01) | DRG 241 ==
LOC: SERX 19:24 → SERHOLD 07-11 05:15 → S2NX 07-11 15:45
PROVIDERS: Nurse Practitioner Family; Specialist; Student in an Organized Health Care Education/Training Program; Admitting Provider Student in an Organized Health Care Education/Training Program; Emergency Provider Emergency Medicine; Visit Provider Internal Medicine
PROC: 0DJ08ZZ Inspection of Upper Intestinal Tract, Via Natural or Artificial Opening Endoscopic (ICD-10-PCS; CPT 43239; principal; 2024-07-12 18:30)
DX: K29.71 Gastritis, unspecified, with bleeding (principal); F17.210 Nicotine dependence, cigarettes, uncomplicated; F12.90 Cannabis use, unspecified, uncomplicated; R04.0 Epistaxis; J18.9 Pneumonia, unspecified organism; K43.9 Ventral hernia without obstruction or gangrene; G89.29 Other chronic pain; M54.50 Low back pain, unspecified; K80.20 Calculus of gallbladder without cholecystitis without obstruction; F15.90 Other stimulant use, unspecified, uncomplicated; R16.2 Hepatomegaly with splenomegaly, not elsewhere classified; N20.0 Calculus of kidney; D50.0 Iron deficiency anemia secondary to blood loss (chronic); Z56.0 Unemployment, unspecified; W01.0XXA Fall on same level from slipping, tripping and stumbling without subsequent striking against object, initial encounter
CPT/HCPCS: 36415; 36430; 71045; 74177; 76705; 80053; 80307; 81001; 81025; 83735; 84100; 84484; 84703; 85014; 85018; 85025; 85610; 85730; 86850; 86900; 86901; 86923; 86927; 86965; 87400; 87811; 93005; 96374; 99291; A4649; J1200; J1940; J2250; J2470; J3010; J7050; P9016; P9035; P9060; Q9967; A9270